=== PATIENT | female | born 1990 | race Caucasian/White ===

== ENCOUNTER 2018-06-21 15:41 | Emergency (ER) | payer SELFPAY ==
[2018-06-21 15:41] VITALS: BP 146/98; PULSE 98; RESP 16; TEMP 36.8; O2SAT 98; BMI 34.3
--- NOTE | 2018-06-21 15:57 | ED.DCSUM_ITS ---
- ER Visit Summary Date of Service: 06/21/18 Chief Complaint: [] Left elbow laceration History of Present Illness: The patient is a 28 F [] certainly bumped her left elbow against the sink suffered a small laceration presents for evaluation she has no loss of function no paresthesias no foreign body sensation her tetanus is up-to-date Physical Examination: [] No distress her general exams unremarkable her left elbow there is a very small about 2 or 3 mm laceration or abrasion to the posterior left elbow region. She has full range of motion of the elbow there is no pain to palpation there is no pain with flexion extension supination pronation forearm wrist hand exam unremarkable there is no bleeding, She states she feels fine she really does not wish to have this area sutured and the wound margins are very well approximated she does not feel any signs of foreign body nor she describing a wrist foreign body she has no signs of bony tenderness or deficiency in her movement of her hand would suggest bony injury, her tetanus was last 2010 she does not wish to have her tetanus updated she is agreeable to having the wound cleansed and dressing applied she will follow with her doctors return for change in symptoms Test Results: [] Emergency Department Course and Treatment: [] Treatment Plan: [] Disposition: [] Home stable Impression: [] 2-3 mm left posterior elbow laceration patient declined suturing This note was generated with [employer] dictation software. It may contain incorrect words, spelling, and punctuation that were not noted in review of the chart prior to signing ED Disposition - Plan for ED Patient: Chief Complaint: Laceration Referrals: NOT,DEFINED [Primary Care Provider] -
--- NOTE | 2018-06-21 15:57 | ED.DEP ---
ED Disposition - Plan for ED Patient: Chief Complaint: Laceration Instructions: ED Laceration All Referrals: NOT,DEFINED [Primary Care Provider] -
--- NOTE | 2018-06-21 15:59 | ED.DEP ---
ED Disposition - Plan for ED Patient: Chief Complaint: Laceration Instructions: ED Laceration All Referrals: NOT,DEFINED [Primary Care Provider] -
[2018-06-21 16:19] VITALS: PULSE 98; RESP 16; O2SAT 98
== END 2018-06-21 16:20 | disposition home or self-care (01) ==
LOC: ED 16:13
PROVIDERS: Emergency Provider Emergency Medicine
DX: S51.012A Laceration without foreign body of left elbow, initial encounter (principal); W22.8XXA Striking against or struck by other objects, initial encounter; Y93.89 Activity, other specified; Y92.008 Other place in unspecified non-institutional (private) residence as the place of occurrence of the external cause; Y99.8 Other external cause status
CPT/HCPCS: 99282